=== PATIENT | female | born 1990 | race Caucasian/White ===

== ENCOUNTER 2021-12-26 08:01 | Outpatient (CLI) | payer BC, SELFPAY ==
[2021-12-26 08:22] LABS: Hematocrit 41.5 % (37.0-47.0); Hemoglobin 14.6 g/dL (12.0-15.0)
== END 2021-12-26 08:02 | disposition home or self-care (01) ==
PROVIDERS: Visit Provider Obstetrics & Gynecology
DX: T83.32XA Displacement of intrauterine contraceptive device, initial encounter (principal)
CPT/HCPCS: 36415; 85014; 85018

== ENCOUNTER 2022-01-02 01:25 | Day surgery (SDC) | payer BC, SELFPAY ==
[2021-12-24 16:13] VITALS: BMI 36.6
--- NOTE | 2021-12-24 16:33 | SUR.PREOP ---
Addendum entered by Romy Winston RN 12/24/21 16:37: Surgery date 01/02/22. Date to take last dose of vitamins/supplements- 12/30/21. Original Note: Report to the Outpatient Waiting Room, entrance under the middle [place] pavilion located off [facility], at time 1230 on date 12/31/21. OR Time: 1430. - You and your visitor will be asked a series of questions to screen for COVID 19 for your protection. - Only one visitor is allowed at this time. - The patient visitor is requested to leave or wait in car when not with patient. - A mask is required within the hospital. Patients may have clear liquids (water, carbonated beverages, clear teas, apple juice) until 3 hours prior to surgery (1130) with a maximum of 20 ounces. - No food from midnight until time of surgery - Infants may have breast milk until 4 hours before surgery, infant formula 6 hours prior to surgery. - Children will be allowed to drink immediately following surgery. If applicable, please bring a bottle or sippy cup to assist with drinking. Juice, water, soda, and popsicles are readily available. For infants on formula, please bring formula the day of surgery. Pacifiers are allowed. Take the following medications with a SIP of water the morning of surgery: NA Medications to discontinue per physician Vitamins/supplements 3 days Date to take last dose 12/28/21 Please no make-up, nail togolese, hairspray, perfume, deodorant, or body powder the day of surgery. No jewelry (including any body piercings) or valuables the day of surgery, leave them at home. Please take a shower or bath the night before, or the morning of, surgery with an antibacterial soap. Wear comfortable, loose fitting clothing. Children are encouraged to wear pajamas. - Jewelry must be removed prior to entering the operating room. Rings and piercings that are not removed may be cut off. - The hospital will not accept responsibility for valuables. - Please leave all valuables, including medications, at home the day of surgery. If you are going home after surgery, a licensed spotter driver must drive you home. - NO public transportation without another adult. - We recommend that an adult stay with you for 24 hours following discharge. - We also recommend that you do not drive, make important decision, drink alcoholic beverages, or take any drugs that were not prescribed by your health care provider for at least 24 hours after your discharge time. For Pediatric surgeries, we recommend two adults accompany the child home (only one inside the building at this time). Follow any additional instructions given to you from your surgeon. If you or anyone in your household have experienced Covid symptoms in the past week, please notify your surgeon or the nurse liaison at the phone number below for possible testing. Telephone instructions given to ____patient and asked if any additional questions and then verbalized understanding. Patient advised to call surgeon office or pre surgery nurse liaison [phone] if any additional questions.
--- NOTE | 2021-12-29 17:45 | P.HP_ITS ---
H&P: HPI History of Present Illness Date/Time: 12/29/21 17:45 Chief Complaint: Retained IUD Narrative: To 31-year-old female who was in the office to have the an IUD removed. The string broke and it was unable to be removed. Ultrasound shows that the IUD is in the correct position in the uterus. She is admitted for hysteroscopic removal. Risks and benefits reviewed [facility] Social History Social History Smoking status: Never smoker Alcohol intake: current Alcohol use details: on occassion- less than 1 per week Spiritual care concerns: No Meds Home Medications and Allergies Home Medications Medication Instructions Recorded Confirmed Type multivitamin with minerals-folic 1 tablet PO DAILY 12/24/21 12/24/21 History acid 0.4 mg tablet omega 4-soe-dtb-fish oil 1,000 mg 1 cap PO DAILY 12/24/21 12/24/21 History (120 mg-180 mg) capsule (Fish Oil) vit#24-iron amino acid 1 tablet PO DAILY 12/24/21 12/24/21 History chelat-folic acid 30 mg-975 mcg tablet Allergies Allergy/AdvReac Type Severity Reaction Status Date / Time No Known Allergies Allergy Mild Verified 12/24/21 16:09 Assessment and Plan Assessment and plan (1) Inflammation associated with retained intrauterine contraceptive device (IUD): Code(s): T83.69XA - Infection and inflammatory reaction due to other prosthetic device, implant and graft in genital tract, initial encounter Status: Acute Plan Hysteroscopic removal of IUD
--- NOTE | 2022-01-02 06:28 | WPDHPUPDATE1 ---
History and Physical Update Update Date/Time: 01/02/22 06:28 History and Physical has been reviewed, including an updated exam of the patient. There are NO changes in the patient's condition. Risks, benefits, and alternatives have been discussed and questions answered. Patient agrees to proceed with procedure.
[2022-01-02 13:08] VITALS: BP 135/88; PULSE 61; RESP 20; TEMP 36.9; O2SAT 100
[2022-01-02] MEDS: ACETAMINOPHEN 500 MG TABLET 1000 MG PO (13:12)
[2022-01-02] MEDS: LACTATED RINGERS 1,000 ML 30 ML IV CONT (13:15)
--- NOTE | 2022-01-02 13:34 | P.PNAN_ITS ---
Anes - Initial Pre Proc Eval Procedure: Operation Date: 01/02/22 14:30 Proposed Procedures p Hysteroscopy, Removal of Intrauterine Device - Giancarlo Berry MD Date/Time: 01/02/22 13:34 Surgeon: Giancarlo Berry MD Pre Op Diagnosis: lost IUD String Patient Data Age: 31 Gender: F Height: 1.65 m Weight: 100 kg Allergies Allergy/AdvReac Type Severity Reaction Status Date / Time No Known Allergies Allergy Mild Verified 01/02/22 13:09 Home Medications Medication Instructions Recorded Confirmed Type multivitamin with minerals-folic 1 tablet PO DAILY 12/24/21 12/24/21 History acid 0.4 mg tablet omega 2-pjt-fqz-fish oil 1,000 mg 1 cap PO DAILY 12/24/21 12/24/21 History (120 mg-180 mg) capsule (Fish Oil) vit#24-iron amino acid 1 tablet PO DAILY 12/24/21 12/24/21 History chelat-folic acid 30 mg-975 mcg tablet hydrocodone 5 mg-acetaminophen 325 1 tablet PO Q4H PRN pain #14 tabs 01/02/22 Rx mg tablet Patient hx anesthesia problems: none Family hx anesthesia problems: none Results Review: All pre-operative results and documents have been reviewed as part of the pre- operative evaluation. [facility] Social History Social History Smoking status: Never smoker Alcohol intake: current Alcohol use details: on occassion- less than 1 per week Living arrangements: with family Spiritual care concerns: No Anes - Eval Final PreProcedure Day of Procedure 01/02/22 13:34 Patient weight: obese Heart: regular rate and rhythm Lungs: clear to auscultation Airway: Mallampati scale class II Neurological: alert and oriented Last oral intake: >/= 8 hours ASA classification: II Emergent: no Anesthetic plan: proceed Anesthesia type and monitoring: general ETT and standard monitoring Results Review: All pre-operative results and documents have been reviewed as part of the pre- operative evaluation. Informed Consent: The patient's anesthetic plan and its attendant risks and benefits were discussed with the patient/family/POA. Questions were solicited and answers provided to the satisfaction of the patient/family/POA.
[2022-01-02] MEDS: LIDOCAINE HCL 1% PF 30 ML VIAL INFILTRATE (13:59)
--- NOTE | 2022-01-02 14:09 | W.PM.PROC2 ---
Procedure Note - Detailed Date of Procedure 01/02/22 Pre-op Diagnosis lost IUD String Post-op Diagnosis Same Procedure Performed Hysteroscopic removal of IUD Surgeon Giancarlo Berry MD Anesthesia MAC and Local Indications this is a 31-year-old female who whose IUD was unable to be found safely in the office Findings retained ParaGard IUD. Normal-appearing endometrium otherwise Description of Procedure patient is prepped draped in normal sterile fashion placed in the dorsal lithotomy position. Under excellent IV sedation weighted speculum placed in posterior fornix vagina. Anterior lip of the cervix grasped with single-tooth tenaculum. 2.5cc of 1% xylocaine anesthesia placed at 2, 4, 8, and 10:00 a.m. of the cervix. Uterus sounded to 8cm. Serial dilatation with fragmented dilators performed followed by passage of the 5mm visualizing hysteroscope. Normal saline was used for visualizing medium. The IUD was seen in the uterus it was removed with the polyp forceps removal. She tolerated the procedure well blood loss was estimated at5cc. All sponge, needle, instrument counts were correct. There were no immediate complications Estimated Blood Loss 5 Drains No Packing No Pathology None sent Complications No immediate complications Condition Stable Disposition PACU
[2022-01-02 14:12] VITALS: BP 105/60; PULSE 68; RESP 16; O2SAT 98
[2022-01-02 14:40] VITALS: BP 105/60; PULSE 66; RESP 16; O2SAT 98
[2022-01-02 15:00] VITALS: BP 106/59; PULSE 55; RESP 16
== END 2022-01-02 15:10 | disposition home or self-care (01) ==
PROVIDERS: Visit Provider Obstetrics & Gynecology
PROC: 0U5B8ZZ Destruction of Endometrium, Via Natural or Artificial Opening Endoscopic (ICD-10-PCS; CPT 58563; principal; 2022-01-02 14:30)
DX: T83.32XA Displacement of intrauterine contraceptive device, initial encounter (principal); E66.9 Obesity, unspecified; Z68.37 Body mass index [BMI] 37.0-37.9, adult
CPT/HCPCS: 58562; A9270; J1100; J2250; J2405; J2704; J3010; J7030; J7120

== ENCOUNTER 2023-06-17 11:19 | Outpatient (RCR) | payer OTHER, SELFPAY ==
[2023-06-17] MEDS: RHO(D) IMMUNE GLOBULIN 300 MCG/2 ML SYRINGE IM (18:05)
== END 2023-09-15 23:59 | disposition home or self-care (01) ==
LOC: ANHLAB 11:19
PROVIDERS: Visit Provider Obstetrics & Gynecology
DX: Z29.13 Encounter for prophylactic Rho(D) immune globulin (principal); O36.0190 Maternal care for anti-D [Rh] antibodies, unspecified trimester, not applicable or unspecified; Z3A.00 Weeks of gestation of pregnancy not specified
CPT/HCPCS: 36415; 85461; 86850; 86900; 86901; 90384; 96372; J2790

== ENCOUNTER 2023-07-09 11:12 | Outpatient (CLI) | payer OTHER, SELFPAY ==
[2023-07-09 11:40] VITALS: BP 120/68; PULSE 94
[2023-07-09 11:43] VITALS: BP 120/68; PULSE 83
== END 2023-07-09 12:15 | disposition home or self-care (01) ==
LOC: ANHOBOP 11:32 → ANHOBPP 11:36
PROVIDERS: Visit Provider Obstetrics & Gynecology
DX: Z34.90 Encounter for supervision of normal pregnancy, unspecified, unspecified trimester (principal); Z3A.00 Weeks of gestation of pregnancy not specified
CPT/HCPCS: 59025; 84112; 99199

== ENCOUNTER 2023-08-24 09:00 | Inpatient (IN) | payer OTHER, SELFPAY ==
[2023-08-24] VITALS (170 sets, daily range): BP systolic 53–160; BP diastolic 38–138; PULSE 25–298; TEMP 36.7–38.8; O2SAT 77–100; BMI 43.3
--- NOTE | 2023-08-24 09:55 | LDADM ---
This patient, Marla Lowery, was admitted to Labor/Delivery/Recovery 105 on 08/24/23 at 09:00. Plans for labor, pain management and were discussed with patient. Patient/family oriented to hospital policies and general routines including ID bracelet, bed and alarms, visiting hours, pain management, procedures, bathroom and other care routines, personal items, smoking policy, room service/diet and guest tray routines, security routines, and visiting hours. Patient/Family are encouraged to report perceived risks to care and to ask questions if they do not understand what they are told or what they should do. See OBIX for further documentation.
[2023-08-24 10:10] LABS: Basophils Percent Auto 0.2 % (0.2-1.2); Eosinophils Absolute Auto 0.1 K/mm3 (0-0.3); Eosinophils Percent Auto 0.5 % (0-4.4); Hematocrit 39.3 % (37.0-47.0); Hemoglobin 13.6 g/dL (12.0-15.0); Immature Granulocyte Absolute 0.09 K/mm3 (0.00-0.031); Immature Granulocyte Percent A 0.8 % (0-0.5); Lymphocytes Percent Auto 13.6 % (18.3-44.2); Mean Corpuscular HGB Conc 34.6 g/dl (32-36); Mean Corpuscular Hemoglobin 31.9 pg (26-34); Mean Corpuscular Volume 92.3 fl (80-100); Mean Platelet Volume 9.5 fl (7.4-10.4); Monocytes Absolute Auto 0.6 K/mm3 (0.1-0.6); Monocytes Percent Auto 5.6 % (2.6-8.5); Neutrophils Absolute Auto 8.7 K/mm3 (1.3-6.7); Neutrophils Percent Auto 79.3 % (45.5-73.1); Platelet Count Result 313 k/mm3 (150-375); Red Blood Count 4.26 M/mm3 (4.2-5.4)
--- NOTE | 2023-08-24 11:47 | PM.IMHP ---
H&P: HPI History of Present Illness Date/Time: 08/24/23 11:47 Chief Complaint: Water broke Narrative: 33 y/o at 38 5/7 weeks here after a gush of fluid this morning at 0830. GBS neg. RomPlus positive here. Irregular contractions. EFW 3 weeks ago 6#6oz. Review of Systems Review of Systems: All systems reviewed & are unremarkable except as noted in HPI and below PMFSH Family History Family History Grandparent Breast cancer Grandparent Heart disease Grandparent Colon cancer Social History Social History Smoking status: Never smoker Alcohol intake: current Alcohol use details: on occassion- less than 1 per week Substance use: never Do You Feel Safe in your Home?: Yes Lack of Transportation: No Lack of Food: Never True Current Housing: I Have Housing Concerned About Future Housing: No Difficulty Paying Gas/Electric Bills: No Difficulty Paying for Meds: No Currently Unemployed: No Education: High School Diploma/GED Difficulty w/ Childcare or Family Care: No Living arrangements: with family Spiritual care concerns: No Meds Home Medications and Allergies Home Medications Medication Instructions Recorded Confirmed Type vit#24-iron amino acid 1 tablet PO DAILY 12/24/21 12/24/21 History chelat-folic acid 30 mg-975 mcg tablet Allergies Allergy/AdvReac Type Severity Reaction Status Date / Time No Known Allergies Allergy Mild Verified 01/02/22 13:09 Vital Signs Vital Signs - 24 hr 08/24/23 09:31 08/24/23 10:16 08/24/23 10:17 Pulse Rate 102 H 99 106 H Blood Pressure 134/96 H 133/73 128/78 Oxygen Delivery 08/24/23 09:53 Pulse Rate Blood Pressure Oxygen Delivery Room Air Exam Const: Orientation/consciousness: patient oriented x3 Other: Well-developed, well-nourished female in no acute distress. Neck: Thyroid: thyroid normal Lymphatic: no lymphadenopathy noted (in neck, axilla or inguinal nodes) Resp: Effort & Inspection: normal respiratory effort Auscultation: clear to auscultation bilaterally Cardio: Rate: regular rate Rhythm: regular rhythm Heart sounds: S1 normal heart sound present and S2 normal heart sound present GI: Other: ABD: Soft, nontender, nondistended, gravid, vertex. NST reactive. TOCO: irregular contractions. No guarding or rebound tenderness. No hepatosplenomegaly. : General: Yes no CVA tenderness Other: Cervix: 3/80/-2. Vertex. IUPC placed. Back/Spine/Pelvis: Back: no CVA tenderness Skin: General skin exam: normal color and no rashes or lesions noted Neuro: General: patient oriented x3 Extrem: Other: Extremities: nontender with no edema Psych: Mental Status: mental status grossly normal Affect: normal affect H&P: Results Labs Labs: Short CBC 08/24/23 Range/Units 09:58 WBC 11.0 H (4.5-10.0) K/mm3 Hgb 13.6 (12.0-15.0) g/dL Hct 39.3 (37.0-47.0) % Plt Count 313 (150-375) k/mm3 Assessment and Plan Assessment and plan (1) Term : Code(s): Z34.90 - Encounter for supervision of normal , unspecified, unspecified trimester Status: Acute Assessment and Plan: A: IUP at term with SROM. P: Anticipate . Augment labor as needed. (2) SROM (spontaneous rupture of membranes): Status: Acute
[2023-08-24] MEDS: TERBUTALINE SULFATE 1 MG/ML VIAL 0.25 MG SUB-Q (14:05)
[2023-08-24] MEDS: LACTATED RINGERS 1,000 ML 999 ML IV CONT ×3 (14:07→19:38)
--- NOTE | 2023-08-24 14:47 | PC.NURSE ---
0912--Pt. presents to L&D with reports of water breaking . Gross leaking of fluid noted. VE /-1, pt. states she has a plan and wants as natural a as possible . Discussed plans for pain management with pt., she states at she is not planning on any pain meds or epidural and would not like me to offer to her unless she asks.
--- NOTE | 2023-08-24 14:56 | WPDANESEPP ---
Anes - Eval Pre Procedure Procedure: Labor Epidural Date/Time: 08/24/23 14:56 Surgeon: Juliet Preop Diagnosis: Labor Pain Pre Op Diagnosis: labor Patient Data Age: 33 Gender: F Height: Weight: Last Vital Signs Temp 37.6 C H 08/24/23 14:30 Pulse 131 H 08/24/23 14:46 BP 119/102 H 08/24/23 14:46 O2 Del Method Room Air 08/24/23 09:53 Allergies Allergy/AdvReac Type Severity Reaction Status Date / Time No Known Allergies Allergy Mild Verified 01/02/22 13:09 Home Medications Medication Instructions Recorded Confirmed Type vit#24-iron amino acid 1 tablet PO DAILY 12/24/21 12/24/21 History chelat-folic acid 30 mg-975 mcg tablet Laboratory Tests 08/24/23 09:58 WBC 11.0 H K/mm3 (4.5-10.0) RBC 4.26 M/mm3 (4.2-5.4) Hgb 13.6 g/dL (12.0-15.0) Hct 39.3 % (37.0-47.0) MCV 92.3 fl (80-100) MCH 31.9 pg (26-34) MCHC 34.6 g/dl (32-36) RDW 13.0 % (11.5-14.5) Plt Count 313 k/mm3 (150-375) MPV 9.5 fl (7.4-10.4) Immature Gran % (Auto) 0.8 H % (0-0.5) Neut % (Auto) 79.3 H % (45.5-73.1) Lymph % (Auto) 13.6 L % (18.3-44.2) [place] % (Auto) 5.6 % (2.6-8.5) Eos % (Auto) 0.5 % (0-4.4) Baso % (Auto) 0.2 % (0.2-1.2) Lymph # (Auto) 1.50 K/mm3 (0.9-3.2) [place] # (Auto) 0.6 K/mm3 (0.1-0.6) Eos # (Auto) 0.1 K/mm3 (0-0.3) Baso # (Auto) 0.0 K/mm3 (0.0-0.1) Abs Immat Gran (auto) 0.09 H K/mm3 (0.00-0.031) Absolute Neuts (auto) 8.7 H K/mm3 (1.3-6.7) Absolute Nucleated RBC 0.000 K/mm3 (0.0-0.012) Nucleated RBC % 0.0 % (0.0-0.2) RPR Pending Blood Type O Negative Antibody Screen Positive Antibody Identification Inconclusive Antigen Identification TNP TANNA, IgG Interpret Not Performed TANNA, Poly Interpret Negative TANNA, Complement Interp Not Performed : gestational age (, PEARL 09/02/23) Patient hx anesthesia problems: none Family hx anesthesia problems: none Results Review: All pre-operative results and documents have been reviewed as part of the pre-operative evaluation. [facility] Family History Family History Grandparent Breast cancer Grandparent Heart disease Grandparent Colon cancer Social History Social History Smoking status: Never smoker Alcohol intake: current Alcohol use details: on occassion- less than 1 per week Substance use: never Do You Feel Safe in your Home?: Yes Lack of Transportation: No Lack of Food: Never True Current Housing: I Have Housing Concerned About Future Housing: No Difficulty Paying Gas/Electric Bills: No Difficulty Paying for Meds: No Currently Unemployed: No Education: High School Diploma/GED Difficulty w/ Childcare or Family Care: No Living arrangements: with family Spiritual care concerns: No Exam Day of Procedure 08/24/23 14:56 Patient weight: obese Heart: regular rate and rhythm Lungs: clear to auscultation Airway: Mallampati scale class II Neurological: alert and oriented
[2023-08-24 15:30] LABS: Rapid Plasma Reagin Non-Reactive (NonReactive)
--- NOTE | 2023-08-24 16:57 | PM.OBPNLAB ---
Pain Control Date/time seen: 08/24/23 16:57 Comments: Comfortable with epidural. Pelvic Exam Dilation (cm): 7 Effacement (%): 100 station: 0 Contractions Contraction frequency: 3 Contraction pattern: Regular Status Comments: Reactive with occasional mild variables with contractions Assessment and Plan Comments: Amnioinfusion. Continue labor.
[2023-08-24] MEDS: SODIUM CHLORIDE 0.9% IV 300 ML 600 ML I-UTERINE (17:38)
[2023-08-24] MEDS: ACETAMINOPHEN 500 MG TABLET 1000 MG PO (19:40)
--- NOTE | 2023-08-24 20:27 | PM.OBPNLAB ---
Pain Control Date/time seen: 08/24/23 20:27 Comments: Comfortable Pelvic Exam Dilation (cm): 10 Effacement (%): 100 station: +2 Contractions Contraction frequency: 3 Contraction pattern: Regular Status status: Category l Assessment and Plan Comments: Begin pushing
[2023-08-24] MEDS: OXYTOCIN 30 UNITS/NS 500 ML 30 UNITS/500 ML BAG 999 UNITS IV CONT (21:15)
--- NOTE | 2023-08-24 21:40 | PM.OBPRVD ---
OB - Vaginal Delivery Note Procedure Delivery date: 08/24/23 Induction method: None Delivery monitor: External FHT, External Uterine, Internal FHT and Internal Uterine Route of delivery: Episiotomy description: None Laceration Description: Perineal - 2nd Degree Delivery repair: vicryl (3-0 Vicryl) Specimen: Yes (cord blood) Quantitative Blood Loss (ml): 280 Anesthesia type: Epidural Disposition: PACU Complications: None Narrative: 33 y/o at 38 5/7 weeks gestation who presented to the hospital after a gush of clear fluid. SROM was confirmed. She was admitted and labor continued spontaneously. Meconium-stained fluid was subsequently noted. She received an epidural for pain control. Her labor progressed and her cervix dilated completely. She pushed with good effort and delivered the infant's head to the perineum. A loose nuchal cord was reduced and the body delivered. The nose and mouth were bulb suctioned. After a delay, the cord was clamped and cut. The infant was handed off the field. Cord blood was collected. The placenta delivered spontaneously and was grossly normal in appearance. The usual 3 vessel cord was noted. A second degree midline perineal laceration was sustained. This was infiltrated with 7 mL of 1% lidocaine and reapproximated using 3 0 Vicryl in the usual layered fashion. Excellent hemostasis resulted as did excellent reapproximation of the normal anatomy. Needle and instrument counts were correct. The patient was taken to recovery room in stable condition. The infant went to the nursery in stable condition. I was present and scrubbed for the entire delivery. Baby Date of : 08/24/23 Time of : 21:11 Weeks of gestation at delivery: 38 Infant gender: Female Weight (pounds): 7 Weight (ounces): 8 presentation: vertex position: Left Occiput Anterior Placenta delivery description: Spontaneous Cord Vessel Description: 3 Vessels, Nuchal Cord and Delayed Cord Clamping score one minute: 8 score five minutes: 9
--- NOTE | 2023-08-24 21:43 | PM.OBDSVD ---
DS: Admitting Diagnosis Discharge Date 08/26/23 Admitting Diagnosis IUP at 38 5/7 weeks SROM DS: Discharge Diagnosis Discharge Diagnosis (1) (normal spontaneous vaginal delivery): Code(s): O80 - Encounter for full-term uncomplicated delivery Status: Acute OB - DS: Summary OB Procedures : None OB Procedures Intrapartum: Spontaneous Vag Delivery OB Procedures: : None Peripartum Data Laceration Description: Perineal - 2nd Degree Episiotomy description: None Time Spent with Patient Time attestation: Total time spent providing and/or coordinating discharge services: DS: Data Data Completed and Pending Labs on day of discharge: Labs from last 24 hours 08/24/23 09:58 WBC 11.0 H RBC 4.26 Hgb 13.6 Hct 39.3 MCV 92.3 MCH 31.9 MCHC 34.6 RDW 13.0 Plt Count 313 MPV 9.5 Immature Gran % (Auto) 0.8 H Neut % (Auto) 79.3 H Lymph % (Auto) 13.6 L [place] % (Auto) 5.6 Eos % (Auto) 0.5 Baso % (Auto) 0.2 Lymph # (Auto) 1.50 [place] # (Auto) 0.6 Eos # (Auto) 0.1 Baso # (Auto) 0.0 Abs Immat Gran (auto) 0.09 H Absolute Neuts (auto) 8.7 H Absolute Nucleated RBC 0.000 Nucleated RBC % 0.0 RPR Non-reactive Blood Type O Negative Antibody Screen Positive Antibody Identification Inconclusive Antigen Identification TNP TANNA, IgG Interpret Not Performed TANNA, Poly Interpret Negative TANNA, Complement Interp Not Performed Discharge Plan Discharge Attending physician on discharge: Axel Bradley Consulting providers: Kayla Ramsay Discharging Clinician: Axel Bradley Patient Disposition: Home, Self-Care Activity: pelvic rest Diet: regular Discharge Instructions: Education: Mom and Baby Guide Given to: Mother Follow-Up: Call your delivering provider's office for an appointment to be seen in: 6 Weeks Mom and baby should come to the [facility] for the follow-up appointment. Appointment Date/Time: August 27, 2023 at 10:00 am What to expect at your follow-up visit: Blood Pressure Check Physical Assessment Call [phone] if you are unable to keep your appointment time. BREAST CARE: * Wear a snug supportive bra. * For engorgement discomfort: Breast Feeding: * Apply warm moist washcloths * Express milk as needed to relieve engorgement * Wear loose clothing * For sore nipples: * Identify correct latch-on * Apply warm moist washcloths before and after nursing * Air dry nipples after nursing * May apply Lansinoh cream to nipples EPISIOTOMY/PERINEAL CARE: * Until bleeding stops, use your fritz bottle after urinating * Change your pad frequently throughout the day * You may take sitz baths several times a day (fill your bathtub with warm water and soak for 20 minutes.) Do NOT bathe in the water * No tub baths until seen by your physician - You may shower ACTIVITY: * Rest as much as possible. * Do not exercise or lift anything heavier than your baby (such as laundry or other children.) * Avoid stairs or driving as much as possible. * Do not put anything into the vagina. No douching, tampons, or sexual activity until seen by physician. NOTIFY PHYSICIAN IF YOU HAVE ANY QUESTIONS OR IF ANY OF THE FOLLOWING SYMPTOMS OCCUR: * If your episiotomy or incision becomes red, swollen, or more painful than what you have experienced in the hospital. * If your vaginal bleeding becomes foul smelling. * If your vaginal bleeding becomes more heavy than a period or if your bleeding changes from pink to bright red. However, you may pass an occasional walnut-sized clot once or twice for the first week . * If you experience a sharp, shooting pain in you calves. * If you discover a hard, reddened area on your breast or if you experience flu-like symptoms. DIET: * Eat regular, well-balanced meals. * Drink plenty of fluids daily. If , drink to thirst.Call or r
[2023-08-24] MEDS: OXYTOCIN 30 UNITS/NS 500 ML 30 UNITS/500 ML BAG 125 UNITS IV CONT (21:57)
[2023-08-24] MEDS: IBUPROFEN 600 MG TABLET PO (22:43)
[2023-08-24] MEDS: AMPICILLIN SULB 3 GM/NS 100 ML 3 GM/100 ML VIAL IVPB (22:43)
[2023-08-25] MEDS: BENZOCAINE 20% AER SPR (*SP) 56 GM CAN 1 SPRAY TOPICAL (00:28)
[2023-08-25] MEDS: WITCH HAZEL 40 PADS 1 PAD TOPICAL (00:28)
[2023-08-25 00:45] VITALS: TEMP 37.2
--- NOTE | 2023-08-25 01:05 | OBPPTRN ---
Patient transferred to post room #292 via wheelchair. Support person- CASSI Quarles present. Oriented to unit, room, information board, rooming in, admission packet and security measures. Patient verbalizes understanding.
[2023-08-25 01:10] VITALS: BP 113/68; PULSE 94; RESP 18; TEMP 37.1; O2SAT 98
[2023-08-25] MEDS: LANOLIN (LANSINOH) 7.5 GM CREAM 1 APPLIC TOPICAL (01:25)
[2023-08-25 04:26] VITALS: BP 102/55; PULSE 87; RESP 18; TEMP 36.7; O2SAT 99
[2023-08-25] MEDS: AMPICILLIN SULB 3 GM/NS 100 ML 3 GM/100 ML VIAL IVPB ×3 (04:26→16:13)
[2023-08-25 05:05] LABS: Basophils Percent Auto 0.2 % (0.2-1.2); Eosinophils Percent Auto 0.1 % (0-4.4); Hematocrit 30.9 % (37.0-47.0); Hemoglobin 10.6 g/dL (12.0-15.0); Immature Granulocyte Percent A 0.6 % (0-0.5); Lymphocytes Absolute Auto 1.47 K/mm3 (0.9-3.2); Lymphocytes Percent Auto 8.6 % (18.3-44.2); Mean Corpuscular HGB Conc 34.3 g/dl (32-36); Mean Corpuscular Volume 93.4 fl (80-100); Mean Platelet Volume 9.4 fl (7.4-10.4); Monocytes Percent Auto 6.1 % (2.6-8.5); Neutrophils Absolute Auto 14.5 K/mm3 (1.3-6.7); Neutrophils Percent Auto 84.4 % (45.5-73.1); Platelet Count Result 236 k/mm3 (150-375); Red Blood Count 3.31 M/mm3 (4.2-5.4); White Blood Count 17.1 K/mm3 (4.5-10.0)
[2023-08-25] MEDS: DOCUSATE SODIUM 100 MG CAPSULE PO ×2 (07:52→16:12)
[2023-08-25 08:10] VITALS: BP 104/55; PULSE 74; RESP 18; TEMP 36.4; O2SAT 97
[2023-08-25] MEDS: MULTIVIT/MIN/PREN/FOL AC/IRON TABLET 1 TAB PO (09:48)
--- NOTE | 2023-08-25 11:21 | WPDANLDPN2 ---
Anes-Prog Note L&D Date/Time: 08/25/23 11:21 Comfortable throughout: labor and delivery Neuraxial method: epidural Epidural/Spinal procedure site: clean & non-tender Neuro status: Neuro function grossly intact. Cardiovascular status: normal Respiratory status: normal Airway patency: baseline Mental status: baseline Post-Op hydration status: normal Vital Signs: Last Vital Signs Temp 36.4 C L 08/25/23 08:10 Pulse 74 08/25/23 08:10 Resp 18 08/25/23 08:10 BP 104/55 L 08/25/23 08:10 Pulse Ox 97 08/25/23 08:10 O2 Del Method Room Air 08/24/23 09:53 Pain score (VAS): 06/09 I/O: Intake & Output 08/24/23 08/25/23 08/25/23 23:59 07:59 15:59 Intake Total 1100 600 Balance 1100 600 Post-procedural complaints: none Patient feedback: Patient satisfied with anesthetic care.
--- NOTE | 2023-08-25 12:50 | PM.OBPNVD ---
OB - PN: Subj Subjective Date/time seen: 08/25/23 12:50 Narrative: Pain OK. No fever since last evening. OB - PN: Obj Data Labs 08/25/23 04:47 Labs: Laboratory Results - last 24 hr 08/24/23 08/25/23 09:58 04:47 WBC 17.1 H RBC 3.31 L Hgb 10.6 L D Hct 30.9 L MCV 93.4 MCH 32.0 MCHC 34.3 RDW 13.0 Plt Count 236 MPV 9.4 Immature Gran % (Auto) 0.6 H Neut % (Auto) 84.4 H Lymph % (Auto) 8.6 L [place] % (Auto) 6.1 Eos % (Auto) 0.1 Baso % (Auto) 0.2 Lymph # (Auto) 1.47 [place] # (Auto) 1.0 H Eos # (Auto) 0.0 Baso # (Auto) 0.0 Abs Immat Gran (auto) 0.10 H Absolute Neuts (auto) 14.5 H Absolute Nucleated RBC 0.000 Nucleated RBC % 0.0 RPR Non-reactive OB - PN A/P Plan day: 1 Comments: A: PPD#1, doing well. P: Plan to stop Unasyn at 24 hours afebrile. Routine care. Exam Psych: Other: VSS. Last fever 101.8 at 2200 last night, afebrile since. ABD soft, nontender, fundus firm EXT nontender
--- NOTE | 2023-08-25 13:33 | PC.NURSE ---
[id number] Introductions were made, then consulted with patient to assess needs related to post breast reduction surgery. Mother led the conversation with her?plans to feed?her infant, the?experience so far, and is demonstrating feeding cues. Mother is going to the restroom after visiting with company while RN JULIANNA demonstrates how to wake and prepare for . After was unswaddled, then demonstrated late feeding cues. Encouraged understanding of the benefits of skin to skin (demonstrating unwrapping infant and placing upright on her chest), stimulating with massage touch, changing positions to encourage wakefulness, how to watch for early feeding cues, responsive feeding, feeding on demand (aiming for 8-12 times in 24 hours, about every 2-3 hours), milk production, hand expression (milk drops were expressed from bilateral breast on the 1800 location of both nipples at this time), building/maintaining a milk supply, duration of feeding, signs of adequate intake/output and how to record on the feeding sheet. Mother works well with her infant with encouragement, education, and it took a few attempts to get to calm and settle at the breast. Mother practiced moving to upright to calm, then back to the breast to latch. Milk was hand expressed from the left breast, then infant latched to the left breast for a few sucks, then stopped. We were unable to maintain latch to the left breast at this session. After infant was [id number] and demonstrated feeding cues, we reviewed positioning and ear, shoulder, hip alignment, supporting the breast to facilitate a deep latch, asymmetrical latch (off-center), leading with the chin with a big, open, wide gape and body close to mother. latched optimally to the right breast in football position. Education given to the mother of how to visualize the suckling (with good rocking jaw motion), swallows (dropping of the lower jaw) and how to listen for drinking at the breast (the ka sound) which infant demonstrated well. Infant was able to maintain latch without pain to mother protecting the nipple with optimal positioning and latching. Reviewed comfort measures of healing with a warm, wet washcloth to rinse breast, then leave open to air-dry, good handwashing when or touching the breast/nipples to prevent infection along with how to detach infant from the breast. We discussed preventing and managing engorgement, plugged ducts, and mastitis. Mother voiced understanding of skin to skin, stimulating with massage touch, responsive feedings, hand expressed colostrum, talking to infant to encourage if it has been 2 -2.5 hours since the start of the last , to call if infant does not latch, or if there is discomfort with . Infant effectively breastfed for 20 minutes, then self detached. Resources used for education were facilitated with the visual educational handouts/ tool/mom and baby guide. Inpatient/outpatient resources provided with feeding sheet, name written on the communication board, and the mom/baby guide. Parents voiced understanding of information, demonstrated learning and will call if there is a request for assistance. Reported to the Primary RN.
--- NOTE | 2023-08-25 15:11 | PC.NURSE ---
[id number] Consulted with patient to assess needs related to after requested. Discussed with mother her successes, concerns and any questions she has. We reviewed working with the infant, supporting breast, protecting her nipples with an optimal deep latch, good positioning, and good hand washing. Infant encouraged with [id number] to organize for . Several attempts on the right breast with no maintaining latch. Once demonstrated feeding cues again upright [id number], then we reviewed positioning and alignment, supporting breast, off-centered (asymmetrical latch) leading with the chin with big, open, wide gape and infant latched optimally to the left breast in football position. Education given to the mother of how to visualize the suckling (with good rocking jaw motion) swallows (dropping of the lower jaw) and how to listen for drinking at the breast (the ka sound) which demonstrated well with deep lowering of the jaw multiple times with 1:1 suck/swallow ratios. The infant was able to maintain latch without discomfort to mother. Reviewed with mother how to support her breast bringing infant close to her body with a deep latch. Nipple care reviewed with optimal latch, good positioning and using clean hands when touching her breast. Resources used to facilitate learning were used from the tool. Parents voiced understanding of the education shared, to call for assistance if the does not latch or if there is discomfort with . Reported to the Primary RN.
[2023-08-25] MEDS: IBUPROFEN 600 MG TABLET PO (16:12)
[2023-08-25 20:07] VITALS: BP 113/67; PULSE 89; RESP 18; TEMP 36.8; O2SAT 100
--- NOTE | 2023-08-26 01:00 | PC.NURSE ---
Mother called out for latch assistance stating, she will latch and just scream at it and not suck. A nipple shield was applied and baby was able to nurse. I educated mom on starting pumping to protect milk supply if she uses the nipple shield 3 times. Mom v/u
[2023-08-26] MEDS: ACETAMINOPHEN 325 MG TABLET 650 MG PO (07:13)
[2023-08-26] MEDS: MULTIVIT/MIN/PREN/FOL AC/IRON TABLET 1 TAB PO (07:13)
[2023-08-26 08:10] VITALS: BP 110/61; PULSE 84; RESP 16; TEMP 37.1; O2SAT 98
--- NOTE | 2023-08-26 09:12 | PM.OBPNVD ---
OB - PN: Subj Subjective Date/time seen: 08/26/23 09:12 Narrative: Pain OK. Would like to go home. OB - PN: Obj Data Labs 08/25/23 04:47 OB - PN A/P Plan Comments: A: PPD#2, doing well. P: Home to f/u 6 weeks. Exam Psych: Other: AVSS ABD soft, nontender, fundus firm EXT nontender
--- NOTE | 2023-08-26 13:25 | PC.NURSE ---
[id number] Mother is demonstrating her ability to independently latch with appropriate positioning and alignment. She denies any nipple discomfort and is responsively . Nipple shield was introduced to mother last night. Mother verbalized her use of the nipple shield and she uses the tool appropriately to help infant latch, then calm to the breast and settles in with effectively without the nipple shield. is currently meeting outcomes for weight, output, jaundice, blood sugar and feeding frequencies of 8-12 times in 24 hours. Reinforced understanding of milk production, transition of milk, signs of adequate intake, transition of stool, prevention/relief of engorgement, plugged ducts, mastitis, responsive watching for feeding cues, the different methods of stimulating infant to breastfeed 1-3 hours after the start of the last feeding, community resources, and when to call a provider using the resource of the feeding sheet along with the mom and baby guide. Mother voiced understanding of the information shared, is confident to continue effectively her at home, when to call for assistance, denies any additional assistance or education at this time.
[2023-08-27 10:23] VITALS: BP 129/80; PULSE 80; RESP 18; TEMP 36.6; O2SAT 99
== END 2023-08-26 11:15 | disposition home or self-care (01) | DRG 807 ==
LOC: ANHLDR 21:44 → ANHOB2 08-26 09:39 → ANHLDR 08-27 10:19 → ANHOB2 08-27 10:19
PROVIDERS: Admitting Provider Obstetrics & Gynecology; Visit Provider Obstetrics & Gynecology
DX: O77.0 Labor and delivery complicated by meconium in amniotic fluid (principal); Z37.0 Single live birth; Z3A.38 38 weeks gestation of pregnancy; O70.1 Second degree perineal laceration during delivery; O36.8330 Maternal care for abnormalities of the fetal heart rate or rhythm, third trimester, not applicable or unspecified
CPT/HCPCS: 36415; 85025; 86592; 86850; 86880; 86900; 86901; 86902; 88307; A9270; J0295; J2590; J2795; J3105; J7030; J7120